=== PATIENT | male | born 1975 | race African-American/Black ===

== ENCOUNTER 2019-10-23 01:18 | Emergency (ER) | payer MEDICAID, OTHER ==
[~2019-10-23] VITALS: Ht 188 cm; Wt 93.0 kg
--- NOTE | 2019-10-23 02:10 | NUR ---
JADEN FROM STREET. TO ER BED 14. AAOX4. NOT IN RESP DISTRESS. AMBULATORY ON STEADY GATE. CAME ON FOR HEARING VOICES AND SEEING SHADOWS. UNABLE TO VERBALIZE WHAT THE VOCE ARE TELLING AND STATES THAT VOICES ARE NOT TELLING HIM TO HURT HIMSELF OR OTHER. PT DENIES ANY SI NOR HI. MD WAS AT [facility] FOR EVAL. MD OFFERED MEDICATION TO HELP WITH THE HALLUCINATIONS BUT REFUSED. PT VERBALIZED THAT HE JUST NEED TO REST IT OF.
--- NOTE | 2019-10-23 03:34 | NUR ---
PT IN BED RESTING COMFORTABLY. NOAD NOTED
--- NOTE | 2019-10-23 06:00 | NUR ---
Patient discharged to home in stable condition. Written and verbal after care instructions given. Patient verbalizes understanding of instruction. Pt ambulatory with a steady gait
[2019-10-23 06:39] VITALS: BP 143/85
== END 2019-10-23 06:39 | disposition home or self-care (01) ==
LOC: ER 01:19
DX: R44.0 Auditory hallucinations (principal); F17.210 Nicotine dependence, cigarettes, uncomplicated; Z71.6 Tobacco abuse counseling; Z59.0 Homelessness; Z98.890 Other specified postprocedural states; Z91.011 Allergy to milk products
CPT/HCPCS: 99284; 99406; L0172